=== PATIENT | female | born 1990 | race African-American/Black ===

== ENCOUNTER 2018-08-05 10:57 | Inpatient (IN) | payer OTHER ==
--- NOTE | 2018-08-05 12:26 | P.HPOB ---
History of Present Illness H&P Date: 08/05/18 This is a 27-year-old black female 2 para 1001 EDC 08/17/2018 at 38-3/7 weeks' gestation. Patient presents today to labor and delivery with uterine contractions every 5-6 minutes apart. She rates them 7 out of 10. Fetus is been active throughout the . She denies fluid leakage or vaginal bleeding. Past medical history is significant for asthma of childhood. Current medications vitamins daily. ALLERGIES none known. Past surgical history is negative. Family history significant for diabetes and hypertension. Reproductive history significant for vaginal delivery in 2014 at 39 weeks gestation. 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 history is significant for blood type O+, rubella status immune. Pap smear negative. Group B strep cultures positive. Gonorrhea and chlamydia cultures, HIV testing, urine culture, hepatitis B surface antigen all negative. One-hour Glucola 90. On exam this is a pleasant female, 5 foot 2-1/2 inches, 225 pounds, vital signs are stable and patient is afebrile. The general exam is within normal limits. Chest is clear in all trinh. Extremities reveal +1 edema. Cervix is 5-6 cm dilated, 70% effaced, -2 station, vertex presentation, slightly posterior. Artificial amniorrhexis reveals clear fluid. heart rate is consistent with reactive NST. Impression: 38-3/7 weeks intrauterine , early spontaneous labor. Positive group B strep cultures. No ALLERGIES. Plan: Penicillin G per hospital protocol. Epidural may be placed at patient's request. Consider oxytocin pending clinical progress. Anticipate normal spontaneous vaginal delivery. Review of Systems As per HPI. Constitutional: Reports as per HPI Past Medical History Past Medical History: No Reported History, Asthma History of Any Multi-Drug Resistant Organisms: None Reported Past Surgical History: No Surgical Hx Reported Smoking Status: Never smoker Medications and Allergies Home Medications Medication Instructions Recorded Confirmed Type Cephalexin [Keflex] 500 mg PO Q8HR #21 cap 12/23/17 Rx Nmm-Niun-Agtdu Acid 1 cap PO HS 12/23/17 12/23/17 History [-U Capsule (formulary)] Allergies Allergy/AdvReac Type Severity Reaction Status Date / Time No Known Allergies Allergy Verified 12/23/17 10:39 Exam Intake and Output 08/04/18 08/05/18 08/05/18 22:59 06:59 14:59 Other: Weight 99.337 kg See dictation under HPI please Assessment and Plan Assessment: 38-3/7 weeks intrauterine , active spontaneous labor. Positive group B strep status. Plan: Admit. Penicillin G prophylaxis per protocol. Analgesia options discussed, patient is requesting epidural. Consider oxytocin augmentation pending clinical progress. Close maternal and surveillance. Anticipate normal spontaneous vaginal delivery. Time with Patient: Less than 30
[2018-08-05] MEDS ORDERED: TERBUTALINE 1 MG/ML VIAL SQ PRN (12:36)
[2018-08-05] MEDS ORDERED: PENICILLIN G POTASSIUM 5,000,000 UNIT in DEXTROSE 5% IN WATER 100 ML IVPB STA ×2 (12:36)
[2018-08-05] MEDS ORDERED: METHYLERGONOVINE 0.2 MG/ML 1 ML AMP IM PRN (12:36)
[2018-08-05] MEDS ORDERED: OXYTOCIN 10 UNIT/ML 1 ML VIAL IM PRN (12:36)
[2018-08-05] MEDS ORDERED: LIDOCAINE 0.5% (PF) 5 MG/ML (50 ML SDV) SQ PRN (12:36)
[2018-08-05] MEDS ORDERED: CARBOPROST TROMETHAMINE 250 MCG/ML 1 ML AMP IM PRN (12:36)
[2018-08-05] MEDS ORDERED: OXYTOCIN 30 UNITS/500 ML NS 30 UNIT in SALINE 1 500ML.BAG IV SCH (12:45)
[2018-08-05] MEDS ORDERED: LACTATED RINGERS 1,000 ML IV SCH (12:45)
[2018-08-05 13:01] LABS: Anisocytosis Slight; Basophils % (A) 0 %; Eosinophils # (A) 0.1 k/uL (0-0.7); Eosinophils % (A) 1 %; HCT 35.8 % (34.0-46.0); HGB 11.5 gm/dL (11.4-16.0); Hypochromasia Slight; Lymphocytes % (A) 12 %; MCH 28.3 pg (25.0-35.0); MCHC 32.2 g/dL (31.0-37.0); MCV 87.6 fL (80.0-100.0); Mean Platelet Volume 7.6; Monocytes # (A) 0.3 k/uL (0-1.0); Monocytes % (A) 4 %; Neutrophils # (A) 6.6 k/uL (1.3-7.7); Neutrophils % (A) 82 %; Platelet Count 299 k/uL (150-450); RBC 4.08 m/uL (3.80-5.40); WBC 8.1 k/uL (3.8-10.6)
[2018-08-05] MEDS ORDERED: ROPIVACAINE 5MG/ML 20ML VIAL ONE (13:13)
[2018-08-05] MEDS ORDERED: fentaNYL (PF) 50 MCG/ML 5 ML AMP ONE (13:13)
[2018-08-05] MEDS ORDERED: SODIUM CHLORIDE 0.9% 100 ML BAG ONE (13:13)
[2018-08-05 14:41] VITALS: BMI 41.3
[2018-08-05] MEDS ORDERED: PENICILLIN G POTASSIUM 2,500,000 UNIT in DEXTROSE 5% IN WATER 100 ML IVPB SCH ×2 (17:00)
[2018-08-05] MEDS ORDERED: BENZOCAINE/MENTHOL SPRAY 1 GM/SPRAY AEROSOL TOPICAL PRN (17:41)
[2018-08-05] MEDS ORDERED: LANOLIN CREAM 5 GM TUBE TOPICAL PRN (17:41)
[2018-08-05] MEDS ORDERED: HYDROCORTISONE 2.5% RECTAL CREAM 30 GM TUBE RECTAL PRN (17:41)
[2018-08-05] MEDS ORDERED: diphenhydrAMINE 50 MG CAP PO PRN (17:41)
[2018-08-05] MEDS ORDERED: ZOLPIDEM 5 MG TAB PO PRN (17:41)
[2018-08-05] MEDS ORDERED: SIMETHICONE 80 MG CHEWABLE PO PRN (17:41)
[2018-08-05] MEDS ORDERED: diphenhydrAMINE 50 MG/ML 1 ML VIAL IVP PRN ×2 (17:41)
[2018-08-05] MEDS ORDERED: diphenhydrAMINE 25 MG CAP PO PRN (17:41)
[2018-08-05] MEDS ORDERED: WITCH HAZEL 1 EACH MED..PAD TOPICAL PRN (17:41)
--- NOTE | 2018-08-05 17:41 | P.PROBDLV ---
Vaginal Delivery Note - . Vaginal Delivery Note: This is a 27-year-old black female 2 para 1001 EDC 08/17/2018 at 38-3/7 weeks' gestation. Patient presented with strong regular uterine contractions and was judged to be in early active labor. is remarkable for positive group B strep status, blood type O+, rubella status immune. Please see my dictated history and physical for details. Antibiotics were started. First dose was in for more than 4 hours prior to delivery. Oxytocin was started and titrated per hospital protocol. Epidural was placed per her request. She progressed well through the first stage of labor and was judged be completely dilated at 1720 hrs. Perineal body was prepped and draped in usual sterile fashion. With excellent maternal expulsive efforts the infant's head delivered occiput anterior. She restituted accordingly. There was no nuchal cord noted. The right or anterior shoulder was gently and quickly delivered from underneath the pubic symphysis at which time the oropharynx, nasopharynx, and external nares were bulb suctioned. Patient was officially delivered of a liveborn female infant at 1726 hrs. Umbilical cord was doubly clamped and ligated, she was handed to waiting nurses for evaluation where scores were 9 and 9 at one and 5 minutes respectively were given. Infant weighed 6 lbs. 11 oz. or 3025 g. Placenta delivered spontaneously, it was inspected and noted to be intact with trivascular cord at 1730 hrs. Perineal body is then redraped. Inspection of the cervix, vagina, perineum, periurethral, and perirectal areas revealed no lacerations and no defects. Total estimated blood loss 250 mL's. All sponge needle and instrument counts are correct at the end of the procedure. Patient and her are allowed to begin the bonding experience in the LDR.
[2018-08-05] MEDS ORDERED: OXYTOCIN 20 UNITS/1000 ML NS 1,000 ML IV SCH (17:45)
[2018-08-05] MEDS: SENNOSIDES-DOCUSATE SODIUM 1 EACH TAB PO SCH (19:55)
[2018-08-05] MEDS: IBUPROFEN 600 MG TAB PO PRN (19:56)
[2018-08-05] MEDS: ACETAMINOPHEN TAB 325 MG TAB PO PRN (21:31)
[2018-08-06] MEDS: IBUPROFEN 600 MG TAB PO PRN ×3 (02:04→20:06)
[2018-08-06 07:06] LABS: Basophils % (A) 0 %; Eosinophils # (A) 0.1 k/uL (0-0.7); Eosinophils % (A) 1 %; HCT 33.4 % (34.0-46.0); HGB 10.4 gm/dL (11.4-16.0); Lymphocytes # (A) 1.7 k/uL (1.0-4.8); Lymphocytes % (A) 17 %; MCHC 31.1 g/dL (31.0-37.0); MCV 90.1 fL (80.0-100.0); Mean Platelet Volume 7.3; Monocytes # (A) 0.5 k/uL (0-1.0); Monocytes % (A) 5 %; Neutrophils # (A) 7.7 k/uL (1.3-7.7); Neutrophils % (A) 76 %; Platelet Count 273 k/uL (150-450); RBC 3.71 m/uL (3.80-5.40); RDW 15.6 % (11.5-15.5); WBC 10.2 k/uL (3.8-10.6)
[2018-08-06] MEDS: SENNOSIDES-DOCUSATE SODIUM 1 EACH TAB PO SCH ×2 (10:19→20:06)
--- NOTE | 2018-08-06 12:53 | P.DS ---
Providers Date of admission: 08/05/18 12:15 Expected date of discharge: 08/06/18 Attending physician: Joycelyn Zavala Primary care physician: Stated None - Discharge Diagnosis(es) (1) Term Current Visit: Yes Status: Acute (2) Positive GBS test Current Visit: Yes Status: Acute (3) Status post vaginal delivery Current Visit: Yes Status: Acute Hospital Course: This is a 27-year-old 2 para 1001 with an estimated due date of 08/17/18 at 38-3/7 weeks that presented to labor and delivery with HEENT: Contractions every 5-6 minutes. Patient was noted to be 4 cm and admitted to labor and delivery. Patient was also noted to be group beta strep positive and antibiotics were begun. Patient had unremarkable care Patient requested epidural placement which was placed by anesthesia without difficulty. She progressed through labor, was complete and began pushing and had a normal spontaneous vaginal delivery of a viable female infant at 1726, weight of 6 lbs. 11 oz. with Apgars of 9 and 9 at one and 5 minutes respectively. No lacerations were noted. Patient's course has been uneventful. On this day #1 she is ambulating and voiding without difficulty. She is tolerating a regular diet without nausea or vomiting. She is breast and bottle feeding. Lochia is noted to be moderate. She does wish discharge home as long as the infant is discharged with her. Patient Condition at Discharge: Good Plan - Discharge Summary New Discharge Prescriptions: No Action Mpl-Hidh-Azqud Acid [-U Capsule (formulary)] 1 cap PO HS Cephalexin [Keflex] 500 mg PO Q8HR #21 cap Discharge Medication List Cephalexin [Keflex] 500 mg PO Q8HR #21 cap 12/23/17 [Rx] Ixw-Kxae-Oyrlm Acid [-U Capsule (formulary)] 1 cap PO HS 12/23/17 [History] Follow up Appointment(s)/Referral(s): Joycelyn Zavala MD [STAFF PHYSICIAN] - 6 Weeks Patient Instructions/Handouts: Vaginal Delivery (DC), Vaginal Delivery (GEN) Discharge Disposition: HOME SELF-CARE
[2018-08-06] MEDS: ACETAMINOPHEN TAB 325 MG TAB PO PRN (13:42)
[2018-08-06 15:35] VITALS: RESP 16
[2018-08-06 21:44] VITALS: PULSE 66; TEMP 98.3
[2018-08-07] MEDS: IBUPROFEN 600 MG TAB PO PRN (08:29)
[2018-08-07] MEDS: SENNOSIDES-DOCUSATE SODIUM 1 EACH TAB PO SCH (08:29)
[2018-08-07 09:11] VITALS: BP 142/85
--- NOTE | 2018-08-07 10:43 | P.PNOBGVD ---
Subjective - Subjective Principal diagnosis: PPD 2 Interval history: Winsome has done well. She opted to stay one additional evening for continued care. On this day #2 she is ambulating and voiding without difficulty. She is tolerating a regular diet without nausea or vomiting. Her lochia is minimal. She is breast-feeding without difficulty. She states she is ready for discharge home today. Patient reports: Reports appetite normal, Reports voiding normally, Reports pain well controlled, Reports ambulating normally [place]: doing well, nursing well Objective - Latest Vital Signs Latest vital signs: Vital Signs Temp Pulse Resp BP 08/07/18 09:00 98.3 F 66 16 142/85 08/06/18 20:00 98.3 F 66 16 140/90 08/06/18 15:31 98.2 F 70 16 115/62 08/06/18 14:00 98.3 F 63 20 130/78 Intake and Output 08/06/18 08/07/18 08/07/18 22:59 06:59 14:59 Other: # Voids 1 2 1 - Exam Extremities: Present: normal, edema Abdomen: Present: normal appearance, soft Uterus: Present: normal, firm Assessment and Plan (1) Term Current Visit: Yes Status: Acute Code(s): Z34.90 - ENCNTR FOR SUPRVSN OF NORMAL , UNSP, UNSP TRIMESTER SNOMED Code(s): 71751011 (2) Positive GBS test Current Visit: Yes Status: Acute Code(s): B95.1 - STREPTOCOCCUS, GROUP B, CAUSING DISEASES CLASSD ELSR SNOMED Code(s): 781469113 (3) Status post vaginal delivery Current Visit: Yes Status: Acute Code(s): DYG2372 - SNOMED Code(s): 226035860 Plan: Plan discharge home with follow-up with Dr. jackson in 6 weeks. Should she have any concerns prior to this 6 weeks appointment she is urged to call and follow up sooner.
== END 2018-08-07 12:30 | disposition home or self-care (01) | DRG 807 ==
LOC: FBPOP 10:57 → 4FBP 12:15
PROVIDERS: ADMIT Obstetrics & Gynecology; ATTEND Obstetrics & Gynecology
PROC: 10E0XZZ Delivery of Products of Conception, External Approach (ICD-10-PCS; principal; 2018-08-05)
PROC: 00HU33Z Insertion of Infusion Device into Spinal Canal, Percutaneous Approach (ICD-10-PCS; 2018-08-05)
PROC: 3E0R3BZ Introduction of Anesthetic Agent into Spinal Canal, Percutaneous Approach (ICD-10-PCS; 2018-08-05)
DX: O99.824 Streptococcus B carrier state complicating childbirth (principal); Z37.0 Single live birth; Z3A.38 38 weeks gestation of pregnancy; Z79.899 Other long term (current) drug therapy; Z87.09 Personal history of other diseases of the respiratory system; Z83.3 Family history of diabetes mellitus; Z82.49 Family history of ischemic heart disease and other diseases of the circulatory system
CPT/HCPCS: 59025; 85025; 86850; 86900; 86901; 99213

== ENCOUNTER 2019-10-06 17:07 | Emergency (ER) | payer OTHER ==
[2019-10-06] MEDS ORDERED: MECLIZINE 12.5 MG TAB PO STA ×2 (18:09→20:15)
[2019-10-06 18:37] LABS: Appearance,Urine Clear (Clear); Bilirubin,Urine Negative (Negative); Blood,Urine Negative (Negative); Color,Urine Colorless; Glucose,Urine (UA) Negative (Negative); Ketones,Urine Negative (Negative); Leukocyte Esterase,Urine Negative (Negative); Nitrite,Urine Negative (Negative); PH, Urine 5.5 (5.0-8.0); Protein,Urine Negative (Negative); Specific Gravity,Urine 1.005 (1.001-1.035); Urobilinogen,Urine <2.0 mg/dL (<2.0)
--- NOTE | 2019-10-06 18:49 | ED ---
Dizziness [facility] - General Chief Complaint: Dizziness Stated Complaint: Dizziness/anxiety Time Seen by Provider: 10/06/19 17:30 Source: patient Mode of arrival: ambulatory Limitations: no limitations - History of Present Illness Initial Comments: Patient is a 29-year-old previously healthy female who presents emergency room with reported dizziness. She reports to vertiginous symptoms as well as presyncope which has been occurring for the past month. Denies headaches or visual changes. No neck pain or stiffness. No fevers or chills. Denies any recent head trauma. No chiropractic medications the neck. Denies that her symptoms are worse with position changes. Denies syncope. No chest pain or shortness of breath. No concern for . Denies changes in her bowel or bladder habits. No other alleviating, precipitating or vomiting factors - Related Data Previous Rx's Medication Instructions Recorded Meclizine [Antivert] 25 mg PO TID PRN #15 tab 10/06/19 Allergies Allergy/AdvReac Type Severity Reaction Status Date / Time No Known Allergies Allergy Verified 10/06/19 18:38 Review of Systems ROS Statement: Those systems with pertinent positive or pertinent negative responses have been documented in the HPI. ROS Other: All systems not noted in ROS Statement are negative. Past Medical History Past Medical History: Asthma History of Any Multi-Drug Resistant Organisms: None Reported Past Surgical History: No Surgical Hx Reported Past Anesthesia/Blood Transfusion Reactions: No Reported Reaction Past Psychological History: Anxiety Smoking Status: Never smoker Past Alcohol Use History: None Reported Past Drug Use History: None Reported - Past Family History Father Family Medical History: No Reported History General Exam Limitations: no limitations General appearance: alert, in no apparent distress Head exam: Present: atraumatic, normocephalic, normal inspection Eye exam: Present: normal appearance, PERRL, EOMI. Absent: scleral icterus, conjunctival injection, periorbital swelling ENT exam: Present: normal exam, mucous membranes moist Neck exam: Present: normal inspection. Absent: tenderness, meningismus, lymphadenopathy Respiratory exam: Present: normal lung sounds bilaterally. Absent: respiratory distress, wheezes, rales, rhonchi, stridor Cardiovascular Exam: Present: regular rate, normal rhythm, normal heart sounds. Absent: systolic murmur, diastolic murmur, rubs, gallop, clicks GI/Abdominal exam: Present: soft, normal bowel sounds. Absent: distended, tenderness, guarding, rebound, rigid Extremities exam: Present: normal inspection, full ROM, normal capillary refill. Absent: tenderness, pedal edema, joint swelling, calf tenderness Back exam: Present: normal inspection Neurological exam: Present: alert, oriented X3, CN II-XII intact Psychiatric exam: Present: normal affect, normal mood Skin exam: Present: warm, dry, intact, normal color. Absent: rash Course Vital Signs 10/06/19 10/06/19 10/06/19 17:30 18:45 18:46 Temperature 98.7 F Pulse Rate 87 Respiratory 18 Rate Blood Pressure 122/86 119/82 121/85 O2 Sat by Pulse 99 Oximetry 10/06/19 10/06/19 19:15 20:33 Temperature 97.8 F Pulse Rate 62 65 Respiratory 17 18 Rate Blood Pressure 128/88 126/84 O2 Sat by Pulse 100 100 Oximetry EKG Findings - EKG Comments: EKG Findings:: EKG demonstrates a sinus rhythm with a ventricular rate of 96. IL interval 160. QRS 110. QTC 449. Incomplete right bundle branch block. Inverted T waves with ST depression in V2 through the 5 Medical Decision Making - Medical Decision Making Upon arrival the patient is placed into room 21. A thorough history and physical exam was performed. Laboratory studies were conducted. The patient did have an EKG performed. CT of the brain as well as a chest x-ray are performed. CT of the brain demonstrates no acute intracranial process. Chest x-ray demonstrates no acute pulmonary process. Laboratory studies are unremarkable. Patient does have a abnormal EKG. I called and discussed the results with Dr. Quinones. He states that the patient is okay to follow up outpatient for an echo. This information was passed on the patient. I did provide her with the [facility]. She she is given a dose of meclizine in the emergency department to take home to take when her symptoms occur. If she has any new or worsening symptoms return to the emergency room. The patient was in agreement with the plan to discharge home in stable condition - Lab Data Result diagrams: 10/06/19 18:55 10/06/19 18:55 Lab Results 10/06/19 10/06/19 10/06/19 Range/Units 18:28 18:28 18:55 WBC 9.6 (3.8-10.6) k/uL RBC 4.28 (3.80-5.40) m/uL Hgb 13.0 (11.4-16.0) gm/dL Hct 40.3 (34.0-46.0) % MCV 94.1 (80.0-100.0) fL MCH 30.3 (25.0-35.0) pg MCHC 32.1 (31.0-37.0) g/dL RDW 12.6 (11.5-15.5) % Plt Count 345 (150-450) k/uL Neutrophils % 69 % Lymphocytes % 22 % Monocytes % 3 % Eosinophils % 4 % Basophils % 0 % Neutrophils # 6.6 (1.3-7.7) k/uL Lymphocytes # 2.1 (1.0-4.8) k/uL Monocytes # 0.3 (0-1.0) k/uL Eosinophils # 0.4 (0-0.7) k/uL Basophils # 0.0 (0-0.2) k/uL Sodium (137-145) mmol/L Potassium (3.5-5.1) mmol/L Chloride (98-107) mmol/L Carbon Dioxide (22-30) mmol/L Anion Gap mmol/L BUN (7-17) mg/dL Creatinine (0.52-1.04) mg/dL Est GFR (CKD-EPI)AfAm (>60 ml/min/1.73 sqM) Est GFR (CKD-EPI)NonAf (>60 ml/min/1.73 sqM) Glucose (74-99) mg/dL Calcium (8.4-10.2) mg/dL Total Bilirubin (0.2-1.3) mg/dL AST (14-36) U/L ALT (4-34) U/L Alkaline Phosphatase (38-126) U/L Troponin I (0.000-0.034) ng/mL Total Protein (6.3-8.2) g/dL Albumin (3.5-5.0) g/dL Urine Color Colorless Urine Appearance Clear (Clear) Urine pH 5.5 (5.0-8.0) Ur Specific [place] 1.005 (1.001-1.035) Urine Protein Negative (Negative) Urine Glucose (UA) Negative (Negative) Urine Ketones Negative (Negative) Urine Blood Negative (Negative) Urine Nitrite Negative (Negative) Urine Bilirubin Negative (Negative) Urine Urobilinogen <2.0 (<2.0) mg/dL Ur Leukocyte Esterase Negative (Negative) Urine HCG, Qual Not Detected (Not Detectd) 10/06/19 10/06/19 Range/Units 18:55 18:55 WBC (3.8-10.6) k/uL RBC (3.80-5.40) m/uL Hgb (11.4-16.0) gm/dL Hct (34.0-46.0) % MCV (80.0-100.0) fL MCH (25.0-35.0) pg MCHC (31.0-37.0) g/dL RDW (11.5-15.5) % Plt Count (150-450) k/uL Neutrophils % % Lymphocytes % % Monocytes % % Eosinophils % % Basophils % % Neutrophils # (1.3-7.7) k/uL Lymphocytes # (1.0-4.8) k/uL Monocytes # (0-1.0) k/uL Eosinophils # (0-0.7) k/uL Basophils # (0-0.2) k/uL Sodium 137 (137-145) mmol/L Potassium 4.2 (3.5-5.1) mmol/L Chloride 104 (98-107) mmol/L Carbon Dioxide 26 (22-30) mmol/L Anion Gap 7 mmol/L BUN 7 (7-17) mg/dL Creatinine 0.53 (0.52-1.04) mg/dL Est GFR (CKD-EPI)AfAm >90 (>60 ml/min/1.73 sqM) Est GFR (CKD-EPI)NonAf >90 (>60 ml/min/1.73 sqM) Glucose 83 (74-99) mg/dL Calcium 10.0 (8.4-10.2) mg/dL Total Bilirubin 0.3 (0.2-1.3) mg/dL AST 19 (14-36) U/L ALT 8 (4-34) U/L Alkaline Phosphatase 66 (38-126) U/L Troponin I <0.012 (0.000-0.034) ng/mL Total Protein 6.9 (6.3-8.2) g/dL Albumin 4.3 (3.5-5.0) g/dL Urine Color Urine Appearance (Clear) Urine pH (5.0-8.0) Ur Specific [place] (1.001-1.035) Urine Protein (Negative) Urine Glucose (UA) (Negative) Urine Ketones (Negative) Urine Blood (Negative) Urine Nitrite (Negative) Urine Bilirubin (Negative) Urine Urobilinogen (<2.0) mg/dL Ur Leukocyte Esterase (Negative) Urine HCG, Qual (Not Detectd) Disposition Clinical Impression: Dizziness, Pre-syncope Disposition: HOME SELF-CARE Condition: Stable Instructions (If sedation given, give patient instructions): Dizziness (ED) Additional Instructions: Please follow-up with the [facility] and have an echo done of your heart. I also recommended Holter monitoring. Return to the emergency room for new or worsening symptoms Prescriptions: Meclizine [Antivert] 25 mg PO TID PRN #15 tab PRN Reason: Vertigo Is patient prescribed a controlled substance at d/c from ED?: No Referrals: None,Stated [Primary Care Provider] - 1-2 days [facility] [Provider Group] - 1-2 days Time of Disposition: 20:17
[2019-10-06 19:09] LABS: Basophils % (A) 0 %; Eosinophils # (A) 0.4 k/uL (0-0.7); Eosinophils % (A) 4 %; HCT 40.3 % (34.0-46.0); Lymphocytes # (A) 2.1 k/uL (1.0-4.8); Lymphocytes % (A) 22 %; MCH 30.3 pg (25.0-35.0); MCHC 32.1 g/dL (31.0-37.0); MCV 94.1 fL (80.0-100.0); Mean Platelet Volume 7.1; Monocytes # (A) 0.3 k/uL (0-1.0); Monocytes % (A) 3 %; Neutrophils # (A) 6.6 k/uL (1.3-7.7); Neutrophils % (A) 69 %; Platelet Count 345 k/uL (150-450); RBC 4.28 m/uL (3.80-5.40); RDW 12.6 % (11.5-15.5); WBC 9.6 k/uL (3.8-10.6)
--- NOTE | 2019-10-06 19:20 | XR ---
EXAMINATION TYPE: XR chest 2V DATE OF EXAM: 10/06/2019 COMPARISON: None INDICATION: Dizzy TECHNIQUE: Frontal and lateral views of the chest are obtained. FINDINGS: The heart size is normal. The pulmonary vasculature is normal. The lungs are clear. IMPRESSION: 1. No acute pulmonary process.
[2019-10-06 19:29] LABS: ALT 8 U/L (4-34); AST 19 U/L (14-36); African American GFR (CKD) >90 (>60 ml/min/1.73 sqM); Albumin 4.3 g/dL (3.5-5.0); Alkaline Phosphatase 66 U/L (38-126); Anion Gap 7 mmol/L; Blood Urea Nitrogen 7 mg/dL (7-17); Carbon Dioxide 26 mmol/L (22-30); Chloride 104 mmol/L (98-107); Glucose 83 mg/dL (74-99); Non-African American GFR(CKD) >90 (>60 ml/min/1.73 sqM); Potassium 4.2 mmol/L (3.5-5.1); Sodium 137 mmol/L (137-145); Total Bilirubin 0.3 mg/dL (0.2-1.3); Total Protein 6.9 g/dL (6.3-8.2)
[2019-10-06 19:46] VITALS: TEMP 97.8
--- NOTE | 2019-10-06 20:07 | CT ---
EXAMINATION TYPE: CT brain wo con DATE OF EXAM: 10/06/2019 COMPARISON: None INDICATION: Dizziness. DLP: 1141.4 mGycm, Automated exposure control for dose reduction was used. CONTRAST: None CT of the brain is performed utilizing 3 mm thick sections through the posterior fossa and 3 mm thick sections through the remaining calvarium. Study is performed within 24 hours of arrival to the hosp [facility]. No abnormal hyperdensity is present to suggest an acute intracranial hemorrhage. No mass lesion is evident. No acute infarcts are evident. Ventricles and sulci are appropriate for the patient age. Paranasal sinuses and mastoid air cells within the [id number] are clear. IMPRESSIONS: 1. Normal CT Brain
[2019-10-06 20:34] VITALS: BP 126/84; PULSE 65; RESP 18
== END 2019-10-06 20:35 | disposition home or self-care (01) ==
LOC: EC 17:07
DX: R42 Dizziness and giddiness (principal); R55 Syncope and collapse; R94.31 Abnormal electrocardiogram [ECG] [EKG]
CPT/HCPCS: 36415; 70450; 71046; 80053; 81003; 81025; 84484; 85025; 93005; 99284

== ENCOUNTER 2019-10-31 01:30 | Emergency (ER) | payer OTHER ==
[2019-10-31 01:46] VITALS: RESP 18
[2019-10-31] MEDS ORDERED: SODIUM CHLORIDE 0.9% 1,000 ML IV STA (02:04)
[2019-10-31] MEDS ORDERED: LORazepam 2 MG/ML INJ IV STA (02:04)
[2019-10-31 02:50] LABS: Basophils % (A) 1 %; Eosinophils # (A) 0.2 k/uL (0-0.7); Eosinophils % (A) 3 %; HCT 40.2 % (34.0-46.0); HGB 12.9 gm/dL (11.4-16.0); Lymphocytes # (A) 1.8 k/uL (1.0-4.8); Lymphocytes % (A) 24 %; MCH 29.7 pg (25.0-35.0); MCV 92.6 fL (80.0-100.0); Mean Platelet Volume 6.7; Monocytes # (A) 0.3 k/uL (0-1.0); Monocytes % (A) 4 %; Neutrophils # (A) 5.1 k/uL (1.3-7.7); Neutrophils % (A) 68 %; Platelet Count 335 k/uL (150-450); RBC 4.34 m/uL (3.80-5.40); RDW 12.3 % (11.5-15.5); WBC 7.6 k/uL (3.8-10.6)
[2019-10-31 02:55] LABS: Appearance,Urine Clear (Clear); Bilirubin,Urine Negative (Negative); Blood,Urine Trace (Negative); Color,Urine Colorless; Glucose,Urine (UA) Negative (Negative); Ketones,Urine Negative (Negative); Leukocyte Esterase,Urine Trace (Negative); Mucus,Urine Rare /hpf; Nitrite,Urine Negative (Negative); PH, Urine 7.5 (5.0-8.0); Protein,Urine Negative (Negative); RBC,Urine <1 /hpf (0-5); Specific Gravity,Urine 1.002 (1.001-1.035); Squamous Epithelial Cell,Urine 1 /hpf (0-4); Urobilinogen,Urine <2.0 mg/dL (<2.0); WBC,Urine 1 /hpf (0-5)
[2019-10-31 02:59] LABS: ALT 9 U/L (4-34); AST 20 U/L (14-36); African American GFR (CKD) >90 (>60 ml/min/1.73 sqM); Albumin 4.3 g/dL (3.5-5.0); Alkaline Phosphatase 63 U/L (38-126); Anion Gap 6 mmol/L; Blood Urea Nitrogen 8 mg/dL (7-17); Calcium 9.8 mg/dL (8.4-10.2); Carbon Dioxide 27 mmol/L (22-30); Chloride 106 mmol/L (98-107); Glucose 115 mg/dL (74-99); Magnesium 2.1 mg/dL (1.6-2.3); Non-African American GFR(CKD) >90 (>60 ml/min/1.73 sqM); Potassium 3.5 mmol/L (3.5-5.1); Sodium 139 mmol/L (137-145); Total Bilirubin 0.3 mg/dL (0.2-1.3); Total Protein 7.2 g/dL (6.3-8.2)
--- NOTE | 2019-10-31 03:05 | ED ---
General Adult HPI - General Chief complaint: Dizziness Stated complaint: Shakey Time Seen by Provider: 10/31/19 01:51 Source: patient, RN notes reviewed, old records reviewed Mode of arrival: ambulatory Limitations: no limitations - History of Present Illness Initial comments: 29-year-old female patient presents to ED for evaluation. Patient were that she has been very anxious. Shaky and somewhat dizzy throughout the day today. Patient denies headache changes in vision chest pain or shortness of breath. Patient was recently evaluated in the emergency department for similar symptoms on 10/05 where she had an extensive workup including labs brain CT and chest x- ray all which were negative for acute process. Patient denies any suicidal or homicidal ideations. Denies any other acute complaints. Systemic: Pt denies fatigue, fever/chills, rash. Pt denies weakness, night sweats, weight loss. Neuro: Pt denies headache, visual disturbances, syncope or pre-syncope. HEENT: Pt denies ocular discharge or irritation, otalgia, rhinorrhea, pharyngitis or notable lymphadenopathy. Cardiopulmonary: Pt denies chest pain, SOB, heart palpitations, dyspnea on exertion. Abdominal/GI: Pt denies abdominal pain, n/v/d. : Pt denies dysuria, burning w/ urination, frequency/urgency. Denies new onset urinary or bowel incontinence. MSK: Pt denies myalgia, loss of strength or function in extremities. Neuro: Pt denies new onset weakness, paresthesias. - Related Data Previous Rx's Medication Instructions Recorded Meclizine [Antivert] 25 mg PO TID PRN #15 tab 10/06/19 LORazepam [Ativan] 0.5 mg PO BID PRN 3 Days #6 tab 10/31/19 Allergies Allergy/AdvReac Type Severity Reaction Status Date / Time No Known Allergies Allergy Verified 10/31/19 01:46 Review of Systems ROS Statement: Those systems with pertinent positive or pertinent negative responses have been documented in the HPI. ROS Other: All systems not noted in ROS Statement are negative. Past Medical History Past Medical History: Asthma History of Any Multi-Drug Resistant Organisms: None Reported Past Surgical History: No Surgical Hx Reported Past Anesthesia/Blood Transfusion Reactions: No Reported Reaction Past Psychological History: Anxiety Smoking Status: Never smoker Past Alcohol Use History: None Reported Past Drug Use History: None Reported - Past Family History Father Family Medical History: No Reported History General Exam - General Exam Comments Initial Comments: Constitutional: NAD, AOX3, Pt has pleasant affect. HEENT: NC/AT, trachea midline, neck supple, no lymphadenopathy. External ears appear normal, without discharge. Mucous membranes moist. Eyes PERRLA, EOM intact. There is no scleral icterus. No pallor noted. Cardiopulmonary: RRR, no murmurs, rubs or gallops, no JVD noted. Lungs CTAB in anterior and posterior trinh. No peripheral edema. Abdominal exam: Abdomen soft and non-distended. Abdomen non-tender to palpation in all 4 quadrants. Bowel sounds active in LLQ. No hepatosplenomegaly. Neuro: CN II-XII intact. No nuchal rigidity. MSK: No posterior calf tenderness bilaterally. Posterior tibialis and radial pulse +2 bilaterally. Sensation intact in upper and lower extremities. Full active ROM in upper and lower extremities, 5/5 stregnth. Limitations: no limitations Course Vital Signs 10/31/19 01:41 Temperature 98.7 F Pulse Rate 111 H Respiratory 18 Rate Blood Pressure 141/98 O2 Sat by Pulse 98 Oximetry Medical Decision Making - Medical Decision Making 29-year-old female patient presents to ED for evaluation feeling dizzy and shaky and anxious throughout the day. Patient vital signs displayed a little tachycardia initially. Physical exam did not display acute pathology. Patient's symptoms resolved after Ativan. Patient leaves of the symptoms are likely anxiety related. Workup here is noncompressive. EKG is unchanged from prior. Patient discharged with a short supply of anxiety medication that she'll use only as needed and will follow-up with her primary care provider and return to ER if any worsening symptoms. Case discussed with Dr. Marinelli. - Lab Data Result diagrams: 10/31/19 02:36 10/31/19 02:36 Lab Results 10/31/19 10/31/19 10/31/19 Range/Units 02:36 02:36 02:36 WBC 7.6 (3.8-10.6) k/uL RBC 4.34 (3.80-5.40) m/uL Hgb 12.9 (11.4-16.0) gm/dL Hct 40.2 (34.0-46.0) % MCV 92.6 (80.0-100.0) fL MCH 29.7 (25.0-35.0) pg MCHC 32.0 (31.0-37.0) g/dL RDW 12.3 (11.5-15.5) % Plt Count 335 (150-450) k/uL Neutrophils % 68 % Lymphocytes % 24 % Monocytes % 4 % Eosinophils % 3 % Basophils % 1 % Neutrophils # 5.1 (1.3-7.7) k/uL Lymphocytes # 1.8 (1.0-4.8) k/uL Monocytes # 0.3 (0-1.0) k/uL Eosinophils # 0.2 (0-0.7) k/uL Basophils # 0.0 (0-0.2) k/uL Sodium 139 (137-145) mmol/L Potassium 3.5 (3.5-5.1) mmol/L Chloride 106 (98-107) mmol/L Carbon Dioxide 27 (22-30) mmol/L Anion Gap 6 mmol/L BUN 8 (7-17) mg/dL Creatinine 0.61 (0.52-1.04) mg/dL Est GFR (CKD-EPI)AfAm >90 (>60 ml/min/1.73 sqM) Est GFR (CKD-EPI)NonAf >90 (>60 ml/min/1.73 sqM) Glucose 115 H (74-99) mg/dL Calcium 9.8 (8.4-10.2) mg/dL Magnesium 2.1 (1.6-2.3) mg/dL Total Bilirubin 0.3 (0.2-1.3) mg/dL AST 20 (14-36) U/L ALT 9 (4-34) U/L Alkaline Phosphatase 63 (38-126) U/L Total Protein 7.2 (6.3-8.2) g/dL Albumin 4.3 (3.5-5.0) g/dL Urine Color Colorless Urine Appearance Clear (Clear) Urine pH 7.5 (5.0-8.0) Ur Specific [place] 1.002 (1.001-1.035) Urine Protein Negative (Negative) Urine Glucose (UA) Negative (Negative) Urine Ketones Negative (Negative) Urine Blood Trace H (Negative) Urine Nitrite Negative (Negative) Urine Bilirubin Negative (Negative) Urine Urobilinogen <2.0 (<2.0) mg/dL Ur Leukocyte Esterase Trace H (Negative) Urine RBC <1 (0-5) /hpf Urine WBC 1 (0-5) /hpf Ur Squamous Epith Cells 1 (0-4) /hpf Urine Mucus Rare H (None) /hpf Urine HCG, Qual (Not Detectd) 10/31/19 Range/Units 02:36 WBC (3.8-10.6) k/uL RBC (3.80-5.40) m/uL Hgb (11.4-16.0) gm/dL Hct (34.0-46.0) % MCV (80.0-100.0) fL MCH (25.0-35.0) pg MCHC (31.0-37.0) g/dL RDW (11.5-15.5) % Plt Count (150-450) k/uL Neutrophils % % Lymphocytes % % Monocytes % % Eosinophils % % Basophils % % Neutrophils # (1.3-7.7) k/uL Lymphocytes # (1.0-4.8) k/uL Monocytes # (0-1.0) k/uL Eosinophils # (0-0.7) k/uL Basophils # (0-0.2) k/uL Sodium (137-145) mmol/L Potassium (3.5-5.1) mmol/L Chloride (98-107) mmol/L Carbon Dioxide (22-30) mmol/L Anion Gap mmol/L BUN (7-17) mg/dL Creatinine (0.52-1.04) mg/dL Est GFR (CKD-EPI)AfAm (>60 ml/min/1.73 sqM) Est GFR (CKD-EPI)NonAf (>60 ml/min/1.73 sqM) Glucose (74-99) mg/dL Calcium (8.4-10.2) mg/dL Magnesium (1.6-2.3) mg/dL Total Bilirubin (0.2-1.3) mg/dL AST (14-36) U/L ALT (4-34) U/L Alkaline Phosphatase (38-126) U/L Total Protein (6.3-8.2) g/dL Albumin (3.5-5.0) g/dL Urine Color Urine Appearance (Clear) Urine pH (5.0-8.0) Ur Specific [place] (1.001-1.035) Urine Protein (Negative) Urine Glucose (UA) (Negative) Urine Ketones (Negative) Urine Blood (Negative) Urine Nitrite (Negative) Urine Bilirubin (Negative) Urine Urobilinogen (<2.0) mg/dL Ur Leukocyte Esterase (Negative) Urine RBC (0-5) /hpf Urine WBC (0-5) /hpf Ur Squamous Epith Cells (0-4) /hpf Urine Mucus (None) /hpf Urine HCG, Qual Not Detected (Not Detectd) - EKG Data -: EKG Interpreted by Me (and Dr. Marinelli ) EKG Comments: Ventricular rate 84, when necessary for 170, QRS 114, QT/QTC 394/465. Normal sinus rhythm, left axis deviation, right bundle-branch block, nonspecific T-wave abnormality. No concern for acute ischemia this time. Disposition Clinical Impression: Anxiety, Dizziness Disposition: HOME SELF-CARE Condition: Stable Instructions (If sedation given, give patient instructions): Vertigo (ED), Anxiety (ED) Additional Instructions: Follow-up with primary care provider tomorrow. Use the anxiety medication only as needed. As discussed at your previous visit follow-up with cardiology [facility] for your abnormal EKG. Return to ED with any worsening symptoms. Prescriptions: LORazepam [Ativan] 0.5 mg PO BID PRN 3 Days #6 tab PRN Reason: anxiety Is patient prescribed a controlled substance at d/c from ED?: No Referrals: None,Stated [Primary Care Provider] - 1-2 days Lavon Chatterjee [STAFF PHYSICIAN] - 1-2 days Daren Quinones DO [STAFF PHYSICIAN] - 1-2 days Sanjeev Vinson MD [REFERRING] - 1-2 days
[2019-10-31 03:44] VITALS: BP 125/81; PULSE 71; TEMP 98.1
== END 2019-10-31 03:44 | disposition home or self-care (01) ==
LOC: EC 01:30
DX: R42 Dizziness and giddiness (principal); F41.9 Anxiety disorder, unspecified
CPT/HCPCS: 36415; 93005; 80053; 83735; 85025; 81001; 81025; 99284; 96374; 96361; J2060

== ENCOUNTER → 2020-02-21 | Outpatient (CLI) | payer BC ==
--- NOTE | 2020-02-21 11:28 | US ---
EXAMINATION TYPE: US abdomen complete DATE OF EXAM: 02/21/2020 COMPARISON: NONE CLINICAL HISTORY: 29-year-old female R01.9 Abdominal Pain. Abdomen pain x couple weeks, nausea TECHNIQUE: Multiple sonographic images of the abdomen are obtained. FINDINGS: EXAM MEASUREMENTS: Liver Length: 13.4 cm Gallbladder Wall: 0.2 cm CBD: 0.3 cm Spleen: 8.2 cm Right Kidney: 9.5 x 5.1 x 5.4 cm Left Kidney: 10.3 x 5.8 x 5.8 cm Pancreas: Most of the pancreas is visualized and shows no gross abnormality. Liver: wnl Gallbladder: wnl Evidence for sonographic Beyer's sign: no CBD: wnl Spleen: wnl Right Kidney: wnl Left Kidney: wnl Upper IVC: wnl Abd Aorta: wnl IMPRESSION: No specific sonographic abnormality identified of the abdomen.
== END | disposition home or self-care (01) ==
LOC: RADUSWWP 10:43
PROVIDERS: ATTEND Nurse Practitioner Adult Health
DX: R10.9 Unspecified abdominal pain (principal)
CPT/HCPCS: 76700

== ENCOUNTER 2020-03-27 18:45 | Emergency (ER) | payer OTHER, BC ==
[2020-03-27 19:04] VITALS: BP 137/89; PULSE 74; RESP 18; TEMP 98.7
[2020-03-27] MEDS ORDERED: DIPH,PERTUS(ACELL)TETVAC-LF 0.5 ML VIAL IM ONE (19:12)
--- NOTE | 2020-03-27 19:14 | ED ---
General Adult HPI - General Chief complaint: Needlestick/Exposure Stated complaint: needle stuck [facility] Time Seen by Provider: 03/27/20 19:08 Source: patient Mode of arrival: ambulatory Limitations: no limitations - History of Present Illness Initial comments: 29 year-old female patient presents to the emergency department for evaluation after having a needlestick injury at work. 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 Patient states she did clean the wound. She is unsure if she has been vaccinated for hepatitis B. She is unsure when her last tetanus vaccine was given. She states they did draw the patient for communicable bloodborne diseases and the patient will be tested through her employer. They did send a rapid HIV. Patient denies any other concerns or symptoms. - Related Data Previous Rx's Medication Instructions Recorded Meclizine [Antivert] 25 mg PO TID PRN #15 tab 10/06/19 LORazepam [Ativan] 0.5 mg PO BID PRN 3 Days #6 tab 10/31/19 Allergies Allergy/AdvReac Type Severity Reaction Status Date / Time No Known Allergies Allergy Verified 10/31/19 01:46 Review of Systems ROS Statement: Those systems with pertinent positive or pertinent negative responses have been documented in the HPI. ROS Other: All systems not noted in ROS Statement are negative. Past Medical History Past Medical History: Asthma History of Any Multi-Drug Resistant Organisms: None Reported Past Surgical History: No Surgical Hx Reported Past Anesthesia/Blood Transfusion Reactions: No Reported Reaction Past Psychological History: Anxiety Smoking Status: Never smoker Past Alcohol Use History: None Reported Past Drug Use History: None Reported - Past Family History Father Family Medical History: No Reported History General Exam Limitations: no limitations General appearance: alert, in no apparent distress, other (This is a well developed, well nourished adult female patient in no acute distress. ) Respiratory exam: Present: normal lung sounds bilaterally. Absent: respiratory distress, wheezes, rales, rhonchi, stridor Cardiovascular Exam: Present: regular rate, normal rhythm, normal heart sounds. Absent: systolic murmur, diastolic murmur, rubs, gallop, clicks Extremities exam: Present: full ROM, normal capillary refill, other (puncture to the pad of the right middle finger. No active bleeding. Skin is otherwise warm and dry. Full ROM intact. Radial pulse 2+. ). Absent: tenderness, pedal edema, joint swelling, calf tenderness Neurological exam: Present: alert, oriented X3, CN II-XII intact Psychiatric exam: Present: normal affect, normal mood Skin exam: Present: warm, dry, intact, normal color. Absent: rash Course Vital Signs 03/27/20 19:03 Temperature 98.7 F Pulse Rate 74 Respiratory 18 Rate Blood Pressure 137/89 O2 Sat by Pulse 100 Oximetry Medical Decision Making - Medical Decision Making 29-year-old female patient presents to the emergency department today for evaluation after sustaining a needlestick injury to the right middle finger. 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 She is awaiting results. We did update her tetanus today. She is going to look into whether or not her hepatitis B series is up-to-date and follow up regarding this as well. She was given counseling regarding blood- borne pathogens. We discharged follow-up with her primary care physician and employee health services for further evaluation as soon as possible. Return parameters were discussed in detail. She verbalizes understanding and agrees with this plan. Case discussed with my attending Dr. Marinelli. Disposition Clinical Impression: Needlestick injury accident with exposure to body fluid Disposition: HOME SELF-CARE Condition: Good Instructions (If sedation given, give patient instructions): Body Substance Exposure (ED) Additional Instructions: Await results of patient's testing to determine need for postexposure prophylaxis for HIV. Follow-up with your primary doctor and previous records to determine if you had hepatitis B vaccination. Return to the emergency department for any new, worsening, or concerning symptoms. Is patient prescribed a controlled substance at d/c from ED?: No Referrals: Jemal Olivares MD [Primary Care Provider] - 1-2 days Time of Disposition: 19:14
[2020-03-28 03:16] LABS: Hepatitis B Surface AB- Quant 18.9 mIU/mL; Hepatitis B Surface Antibody Reactive (Non-Reactive); Hepatitis C IgG Antibody Non-Reactive (Non-Reactive)
[2020-03-28 04:18] LABS: HIV 2 AB Non-Reactive (Non-Reactive); HIV AB P24 Non-Reactive (Non-Reactive); HIV P24 AG Non-Reactive (Non-Reactive)
== END 2020-03-27 20:00 | disposition home or self-care (01) ==
LOC: EC 18:45
DX: S61.232A Puncture wound without foreign body of right middle finger without damage to nail, initial encounter (principal); Z23 Encounter for immunization; Z77.21 Contact with and (suspected) exposure to potentially hazardous body fluids; W46.0XXA Contact with hypodermic needle, initial encounter; Y92.69 Other specified industrial and construction area as the place of occurrence of the external cause; Y99.0 Civilian activity done for income or pay
CPT/HCPCS: 36415; 86706; 86803; 87390; 90471; 90715; 99282

== ENCOUNTER 2020-04-11 18:19 | Emergency (ER) | payer BC ==
[2020-04-11 18:32] VITALS: PULSE 95; RESP 18; TEMP 97.8
[2020-04-11 19:24] LABS: Appearance,Urine Clear (Clear); Bacteria,Urine Rare /hpf; Bilirubin,Urine Negative (Negative); Blood,Urine Large (Negative); Color,Urine Light Yellow; Glucose,Urine (UA) Negative (Negative); Ketones,Urine Negative (Negative); Leukocyte Esterase,Urine Small (Negative); Nitrite,Urine Negative (Negative); Protein,Urine Negative (Negative); RBC,Urine 60 /hpf (0-5); Specific Gravity,Urine 1.005 (1.001-1.035); Squamous Epithelial Cell,Urine 1 /hpf (0-4); Urobilinogen,Urine <2.0 mg/dL (<2.0); WBC,Urine 21 /hpf (0-5)
[2020-04-11 19:24] LABS: Basophils # (A) 0.1 k/uL (0-0.2); Basophils % (A) 1 %; Eosinophils # (A) 0.5 k/uL (0-0.7); Eosinophils % (A) 5 %; HCT 45.1 % (34.0-46.0); Lymphocytes # (A) 2.5 k/uL (1.0-4.8); Lymphocytes % (A) 26 %; MCH 31.8 pg (25.0-35.0); MCHC 33.3 g/dL (31.0-37.0); MCV 95.4 fL (80.0-100.0); Mean Platelet Volume 7.2; Monocytes # (A) 0.3 k/uL (0-1.0); Monocytes % (A) 3 %; Neutrophils # (A) 6.1 k/uL (1.3-7.7); Neutrophils % (A) 63 %; Platelet Count 367 k/uL (150-450); RBC 4.72 m/uL (3.80-5.40); RDW 12.6 % (11.5-15.5); WBC 9.7 k/uL (3.8-10.6)
[2020-04-11 19:36] LABS: ALT 11 U/L (4-34); AST 25 U/L (14-36); African American GFR (CKD) >90 (>60 ml/min/1.73 sqM); Albumin 5.2 g/dL (3.5-5.0); Alkaline Phosphatase 56 U/L (38-126); Amylase 85 U/L (30-110); Anion Gap 14 mmol/L; Blood Urea Nitrogen 7 mg/dL (7-17); Calcium 10.7 mg/dL (8.4-10.2); Carbon Dioxide 24 mmol/L (22-30); Chloride 107 mmol/L (98-107); Glucose 83 mg/dL (74-99); Lipase 80 U/L (23-300); Non-African American GFR(CKD) >90 (>60 ml/min/1.73 sqM); Potassium 4.3 mmol/L (3.5-5.1); Sodium 145 mmol/L (137-145); Total Bilirubin 0.5 mg/dL (0.2-1.3)
--- NOTE | 2020-04-11 20:31 | US ---
EXAMINATION TYPE: US abdomen limited DATE OF EXAM: 04/11/2020 COMPARISON: Ultrasound 02/21/2020 CLINICAL HISTORY: RUQ pain EXAM MEASUREMENTS: Liver Length: 14.6 cm Gallbladder Wall: 0.21 cm CBD: 0.42 cm Right Kidney: 10.1 x 5.4 x 5.0 cm *Limited visualization, due to gas. Pancreas: Appears wnl, slightly limited due to gas. Liver: Appears wnl. Gallbladder: Hyperechoic focus demonstrating acoustic shadowing seen dependently within the gallblad osmani, measuring 1.0 x 0.7 x 0.4 cm. Evidence for sonographic Beyer's sign: equivocal CBD: Normal, measuring 4 mm in caliber Right Kidney: No hydronephrosis or masses seen IMPRESSION: 1. Cholelithiasis without evidence of cholecystitis. 2. No other findings.
--- NOTE | 2020-04-11 20:36 | XR ---
EXAMINATION TYPE: XR KUB 2 upright views DATE OF EXAM: 04/11/2020 8:26 PM CLINICAL HISTORY: Right upper quadrant pain TECHNIQUE: 2 upright views COMPARISON: None. FINDINGS: Scattered gas is seen in non-distended small bowel loops. Gas and fecal material is seen in non-distended colon. There is no visceromegaly, pneumoperitoneum, or abnormal calcification apprecia norma. The lung bases are clear and the osseous structures are intact. IMPRESSION: No acute radiographic process.
--- NOTE | 2020-04-11 20:38 | ED ---
Abdominal Pain HPI - General Chief Complaint: Abdominal Pain Stated Complaint: Feeling faint Time Seen by Provider: 04/11/20 18:41 Source: patient Mode of arrival: ambulatory Limitations: no limitations - History of Present Illness Initial Comments: 29-year-old feel presenting today for chief complaint of right upper quadrant abdominal pain. Patient states that she has had issues with her gallbladder on and off she states she recently had an ultrasound about a month ago that was negative. Patient states she has pain frequently after eating especially fatty meals. Patient states today after he talked she had right upper quadrant pain she states that made her feel faint and nauseated and her whole-body felt weird. Patient denies fevers, diarrhea or vomiting. Denies chest pain or shortness of breath denies pain to deep inspiration. Denies leg swelling. Patient states that the pain has subsided now she has a slight headache she states she is not sure if this stress lately because she has had increasing anxiety and life stressors lately. Patient denies sudden onset of headache for the spinning the worst headache of her life. Patient denies any speech changes visual changes nausea vomiting neck pain weakness or sensation deficits. Patient states she presented today to have her gallbladder evaluated. Many rhesus negative upon arrival patient appears well nontoxic distress - Related Data Previous Rx's Medication Instructions Recorded LORazepam [Ativan] 0.5 mg PO BID PRN 3 Days #6 tab 10/31/19 Allergies Allergy/AdvReac Type Severity Reaction Status Date / Time No Known Allergies Allergy Verified 04/11/20 18:29 Review of Systems ROS Statement: Those systems with pertinent positive or pertinent negative responses have been documented in the HPI. ROS Other: All systems not noted in ROS Statement are negative. Past Medical History Past Medical History: Asthma History of Any Multi-Drug Resistant Organisms: None Reported Past Surgical History: No Surgical Hx Reported Past Anesthesia/Blood Transfusion Reactions: No Reported Reaction Past Psychological History: Anxiety Smoking Status: Never smoker Past Alcohol Use History: None Reported Past Drug Use History: None Reported - Past Family History Father Family Medical History: No Reported History General Exam - General Exam Comments Initial Comments: General: The patient is awake and alert, in no distress Eye: +3 mm pupils are equal, round and reactive to light, extra-ocular movements are intact. No nystagmus. There is normal conjunctiva bilaterally. No signs of icterus. Ears, nose, mouth and throat: There are moist mucous membranes and no oral lesions. Neck: The neck is supple, there is no tenderness or JVD. Cardiovascular: There is a regular rate and rhythm. No murmur, rub or gallop is appreciated. Respiratory: Lungs are clear to auscultation, respirations are non-labored, breath sounds are equal. No wheezes, stridor, rales, or rhonchi. Gastrointestinal: Soft, non-distended, mild RUQ tenderness to palation of the abdomen without masses or organomegaly noted. There is no rebound or guarding present. Musculoskeletal: Normal ROM, no tenderness. Strength 5/5 of the UE and LE b/ l. Sensation intact of the UE and LE b/l. Radial pulses equal bilaterally 2+. Neurological: A&O x 3. CN II-XII intact, There are no obvious motor or sensory deficits. Coordination appears grossly intact. Speech is normal. Skin: Skin is warm and dry and no rashes or lesions are noted. Psychiatric: Cooperative, appropriate mood & affect, normal judgment. Limitations: no limitations Course Vital Signs 04/11/20 04/11/20 18:30 21:01 Temperature 97.8 F 97.8 F Pulse Rate 95 95 Respiratory 18 18 Rate Blood Pressure 135/86 130/87 O2 Sat by Pulse 100 100 Oximetry Medical Decision Making - Medical Decision Making 29yo female presenting for cc of RUQ pain. concern for gallbladder disease. Pain on exam. Labs stable .US consistent with stones. Pain improved. Pt states she now has a headache, she states she has been stressed. Focal neurological deficits. Denies this being the worse headache of her life. Denies sudden onset. Patient was given a Tylenol. Patient is agreeable to return for worsening abdominal or head pain. patient discharged appearing well. no distress. Dr Baum agreeable to care plan. - Lab Data Result diagrams: 04/11/20 19:14 04/11/20 19:14 Lab Results 04/11/20 04/11/20 04/11/20 Range/Units 19:14 19:14 19:14 WBC 9.7 (3.8-10.6) k/uL RBC 4.72 (3.80-5.40) m/uL Hgb 15.0 (11.4-16.0) gm/dL Hct 45.1 (34.0-46.0) % MCV 95.4 (80.0-100.0) fL MCH 31.8 (25.0-35.0) pg MCHC 33.3 (31.0-37.0) g/dL RDW 12.6 (11.5-15.5) % Plt Count 367 (150-450) k/uL MPV 7.2 Neutrophils % 63 % Lymphocytes % 26 % Monocytes % 3 % Eosinophils % 5 % Basophils % 1 % Neutrophils # 6.1 (1.3-7.7) k/uL Lymphocytes # 2.5 (1.0-4.8) k/uL Monocytes # 0.3 (0-1.0) k/uL Eosinophils # 0.5 (0-0.7) k/uL Basophils # 0.1 (0-0.2) k/uL Sodium 145 (137-145) mmol/L Potassium 4.3 (3.5-5.1) mmol/L Chloride 107 (98-107) mmol/L Carbon Dioxide 24 (22-30) mmol/L Anion Gap 14 mmol/L BUN 7 (7-17) mg/dL Creatinine 0.54 (0.52-1.04) mg/dL Est GFR (CKD-EPI)AfAm >90 (>60 ml/min/1.73 sqM) Est GFR (CKD-EPI)NonAf >90 (>60 ml/min/1.73 sqM) Glucose 83 (74-99) mg/dL Plasma Lactic Acid [place] 1.8 (0.7-2.0) mmol/L Calcium 10.7 H (8.4-10.2) mg/dL Total Bilirubin 0.5 (0.2-1.3) mg/dL AST 25 (14-36) U/L ALT 11 (4-34) U/L Alkaline Phosphatase 56 (38-126) U/L Troponin I (0.000-0.034) ng/mL Total Protein 9.0 H (6.3-8.2) g/dL Albumin 5.2 H (3.5-5.0) g/dL Amylase 85 (30-110) U/L Lipase 80 (23-300) U/L Urine Color Urine Appearance (Clear) Urine pH (5.0-8.0) Ur Specific [place] (1.001-1.035) Urine Protein (Negative) Urine Glucose (UA) (Negative) Urine Ketones (Negative) Urine Blood (Negative) Urine Nitrite (Negative) Urine Bilirubin (Negative) Urine Urobilinogen (<2.0) mg/dL Ur Leukocyte Esterase (Negative) Urine RBC (0-5) /hpf Urine WBC (0-5) /hpf Ur Squamous Epith Cells (0-4) /hpf Urine Bacteria (None) /hpf 04/11/20 04/11/20 Range/Units 19:14 19:17 WBC (3.8-10.6) k/uL RBC (3.80-5.40) m/uL Hgb (11.4-16.0) gm/dL Hct (34.0-46.0) % MCV (80.0-100.0) fL MCH (25.0-35.0) pg MCHC (31.0-37.0) g/dL RDW (11.5-15.5) % Plt Count (150-450) k/uL MPV Neutrophils % % Lymphocytes % % Monocytes % % Eosinophils % % Basophils % % Neutrophils # (1.3-7.7) k/uL Lymphocytes # (1.0-4.8) k/uL Monocytes # (0-1.0) k/uL Eosinophils # (0-0.7) k/uL Basophils # (0-0.2) k/uL Sodium (137-145) mmol/L Potassium (3.5-5.1) mmol/L Chloride (98-107) mmol/L Carbon Dioxide (22-30) mmol/L Anion Gap mmol/L BUN (7-17) mg/dL Creatinine (0.52-1.04) mg/dL Est GFR (CKD-EPI)AfAm (>60 ml/min/1.73 sqM) Est GFR (CKD-EPI)NonAf (>60 ml/min/1.73 sqM) Glucose (74-99) mg/dL Plasma Lactic Acid [place] (0.7-2.0) mmol/L Calcium (8.4-10.2) mg/dL Total Bilirubin (0.2-1.3) mg/dL AST (14-36) U/L ALT (4-34) U/L Alkaline Phosphatase (38-126) U/L Troponin I <0.012 (0.000-0.034) ng/mL Total Protein (6.3-8.2) g/dL Albumin (3.5-5.0) g/dL Amylase (30-110) U/L Lipase (23-300) U/L Urine Color Light Yellow Urine Appearance Clear (Clear) Urine pH 6.0 (5.0-8.0) Ur Specific [place] 1.005 (1.001-1.035) Urine Protein Negative (Negative) Urine Glucose (UA) Negative (Negative) Urine Ketones Negative (Negative) Urine Blood Large H (Negative) Urine Nitrite Negative (Negative) Urine Bilirubin Negative (Negative) Urine Urobilinogen <2.0 (<2.0) mg/dL Ur Leukocyte Esterase Small H (Negative) Urine RBC 60 H (0-5) /hpf Urine WBC 21 H (0-5) /hpf Ur Squamous Epith Cells 1 (0-4) /hpf Urine Bacteria Rare H (None) /hpf Disposition Clinical Impression: Dysfunctional gallbladder, Headache Disposition: HOME SELF-CARE Condition: Good Instructions (If sedation given, give patient instructions): Biliary Colic (ED), Gallstones (ED), Low Fat Diet (ED) Additional Instructions: Please use medication as discussed. Please follow-up with family doctor in the next 2 days, please follow-up with general surgery. Please return to emergency room if the symptoms increase or worsen or for any other concerns. Is patient prescribed a controlled substance at d/c from ED?: No Referrals: Jemal Olivares MD [Primary Care Provider] - 1-2 days Charles Meier MD [Medical Doctor] - 1-2 days Time of Disposition: 20:38
[2020-04-11] MEDS ORDERED: ACETAMINOPHEN TAB 325 MG TAB PO STA (20:46)
[2020-04-11 21:01] VITALS: BP 130/87
== END 2020-04-11 21:04 | disposition home or self-care (01) ==
LOC: EC 18:19
DX: K82.8 Other specified diseases of gallbladder (principal); R51.9 Headache, unspecified; R29.818 Other symptoms and signs involving the nervous system
CPT/HCPCS: 36415; 74018; 76705; 80053; 81001; 82150; 83605; 83690; 84484; 85025; 87086; 93005; 99284

== ENCOUNTER 2020-04-15 02:18 | Emergency (ER) | payer BC ==
[2020-04-15 02:25] VITALS: RESP 16
[2020-04-15] MEDS ORDERED: methylPREDNISolone SOD SUCCI 125 MG/2 ML VIAL IV STA (02:32)
[2020-04-15] MEDS ORDERED: diphenhydrAMINE 50 MG/ML 1 ML VIAL IVP STA (02:32)
[2020-04-15] MEDS ORDERED: FAMOTIDINE 20 MG/2 ML VIAL IV STA (02:32)
[2020-04-15] MEDS ORDERED: SODIUM CHLORIDE 0.9% 500 ML 500 ML IV ONE (02:32)
--- NOTE | 2020-04-15 02:34 | ED ---
Allergic Reaction HPI - General Chief complaint: Allergic Reaction Stated complaint: Allergic Reaction Time Seen by Provider: 04/15/20 02:26 Source: patient Mode of arrival: wheelchair Limitations: no limitations - History of Present Illness Initial Comments: 29-year-old female presenting today for chief complaint of possible ALLERGIC reaction. Patient states that she took ibuprofen around 9 PM she states she woke up at 1AM with swollen eyes she states became anxious. Patient denies rashes, tongue swelling. She states initially she felt anxious with dyspnea because of the swelling but states that went away. Denies known ibuprofen allergy, states she ate salmon for dinner otherwise no shellfish or peanut containing products. Patient denies vomiting, diarrhea, abdominal pain, wheezing. She denies syncope/presyncope. Patient denies additional complaints. Upon arrival patient appears well nontoxic in no acute distress. No tachypnea - Related Data Previous Rx's Medication Instructions Recorded LORazepam [Ativan] 0.5 mg PO BID PRN 3 Days #6 tab 10/31/19 EPINEPHrine (Auto Inject) [Epipen] 0.3 mg IM ONCE PRN 2 Days #2 pen 04/15/20 predniSONE 50 mg PO DAILY 4 Days #4 tab 04/15/20 Allergies Allergy/AdvReac Type Severity Reaction Status Date / Time No Known Allergies Allergy Verified 04/15/20 02:22 Review of Systems ROS Statement: Those systems with pertinent positive or pertinent negative responses have been documented in the HPI. ROS Other: All systems not noted in ROS Statement are negative. Past Medical History Past Medical History: Asthma History of Any Multi-Drug Resistant Organisms: None Reported Past Surgical History: No Surgical Hx Reported Past Anesthesia/Blood Transfusion Reactions: No Reported Reaction Past Psychological History: Anxiety Smoking Status: Never smoker Past Alcohol Use History: None Reported Past Drug Use History: None Reported - Past Family History Father Family Medical History: No Reported History General Exam - General Exam Comments Initial Comments: General: The patient is awake and alert, in no distress Eye: +3 mm pupils are equal, round and reactive to light, extra-ocular movements are intact. No nystagmus. There is normal conjunctiva bilaterally. No signs of icterus. Ears, nose, mouth and throat: There are moist mucous membranes and no oral lesions. Tongue swelling, very mild swelling of the lips. Patient has patent oropharynx without erythema. No obvious ocular swelling. Neck: The neck is supple, there is no tenderness or JVD. Cardiovascular: There is a regular rate and rhythm. No murmur, rub or gallop is appreciated. Respiratory: Lungs are clear to auscultation, respirations are non-labored, breath sounds are equal. No wheezes, stridor, rales, or rhonchi. No retractions no abdominal breathing Gastrointestinal: Soft, non-distended, non-tender abdomen without masses or organomegaly noted. There is no rebound or guarding present. Musculoskeletal: Normal ROM, no tenderness. Strength 5/5. Sensation intact. Radial pulses equal bilaterally 2+. Neurological: A&O x 3. CN II-XII intact grossly, There are no obvious motor or sensory deficits. Coordination appears grossly intact. Speech is normal. Skin: Skin is warm and dry and no rashes or lesions are noted. No urticarial noted. Psychiatric: Cooperative, appropriate mood & affect, normal judgment. Limitations: no limitations Course Vital Signs 04/15/20 04/15/20 02:22 03:40 Pulse Rate 68 71 Respiratory 16 16 Rate Blood Pressure 123/76 112/71 O2 Sat by Pulse 100 99 Oximetry Medical Decision Making - Medical Decision Making Patient presents for possible allergic reaction, possible mild lip swelling. no obvious swelling of other aspect of face including of eyes or tongue, no wheezing abdominal pain, diarrhea or vomiting. Patient shows no signs respiratory distress she is not hypotensive nor tachycardic. At this time patient was given the ALLERGY cocktail including Pepcid Benadryl and slight Medrol. She'll be discharged home on prednisone and educated on the use of an EpiPen. Patient is agreeable to his care for discharge at this time I did recommend avoiding Kellogg as well as NSAIDs until she sees an pharmacology teacher. Patient verbalized understanding was discharged appearing well. Dr Jie pederson eeable to care plan. Disposition Clinical Impression: Allergic reaction Disposition: HOME SELF-CARE Condition: Good Instructions (If sedation given, give patient instructions): Anaphylaxis (ED) Additional Instructions: Please use medication as discussed. Please follow-up with family doctor in the next 2 days.. Please return to emergency room if the symptoms increase or worsen or for any other concerns. Prescriptions: EPINEPHrine (Auto Inject) [Epipen] 0.3 mg IM ONCE PRN 2 Days #2 pen PRN Reason: Anaphylaxis predniSONE 50 mg PO DAILY 4 Days #4 tab Is patient prescribed a controlled substance at d/c from ED?: No Referrals: Jemal Olivares MD [Primary Care Provider] - 1-2 days Time of Disposition: 03:00 (04/15/2020)
[2020-04-15 03:52] VITALS: BP 112/71; PULSE 71
== END 2020-04-15 03:40 | disposition home or self-care (01) ==
LOC: EC 02:18
DX: T78.40XA Allergy, unspecified, initial encounter (principal); J45.909 Unspecified asthma, uncomplicated; F41.9 Anxiety disorder, unspecified
CPT/HCPCS: J1200; J2930; 96374; 96375; 99283

== ENCOUNTER → 2020-05-02 | Outpatient (CLI) | payer BC | END | disposition home or self-care (01) | LOC: LABPAT 10:44 | PROVIDERS: ATTEND Surgery | DX: Z20.822 Contact with and (suspected) exposure to COVID-19 (principal) | CPT/HCPCS: U0003; C9803; U0005 ==

== ENCOUNTER 2020-05-08 10:10 | Day surgery (SDC) | payer BC ==
[2020-05-06 14:09] VITALS: BMI 28.9
[~2020-05-08 10:10] MED LIST: HYDROmorphone 0.5 MG/0.5 ML SYRINGE IVP PRN; LACTATED RINGERS 1,000 ML IV SCH; ONDANSETRON 4 MG/2 ML VIAL IVP ONE; Pre Op ABX Message 1 EACH MISC MISCELLANE ONE; fentaNYL (PF) 50 MCG/ML 2 ML AMP IV PRN
[2020-05-08] MEDS ORDERED: LIDOCAINE 1% (10MG/ML) FOR IV START INTRADERMA ONE (10:55)
[2020-05-08] MEDS ORDERED: ONDANSETRON 4 MG/2 ML VIAL ONE (10:57)
[2020-05-08] MEDS ORDERED: DEXAMETHASONE SOD PHOSPHATE 10 MG/ML 1 ML VIAL IV ONE (10:59)
[2020-05-08 11:17] LABS: ALT 8 U/L (4-34); AST 22 U/L (14-36); African American GFR (CKD) >90 (>60 ml/min/1.73 sqM); Albumin 4.6 g/dL (3.5-5.0); Alkaline Phosphatase 49 U/L (38-126); Anion Gap 10 mmol/L; Blood Urea Nitrogen 6 mg/dL (7-17); Calcium 9.9 mg/dL (8.4-10.2); Carbon Dioxide 23 mmol/L (22-30); Chloride 108 mmol/L (98-107); Glucose 79 mg/dL (74-99); Non-African American GFR(CKD) >90 (>60 ml/min/1.73 sqM); Sodium 141 mmol/L (137-145); Total Protein 7.8 g/dL (6.3-8.2)
[2020-05-08] MEDS ORDERED: LIDOCAINE 1% INJ 10MG/ML (20 ML MDV) ONE (11:28)
[2020-05-08] MEDS ORDERED: SUCCINYLCHOLINE CHLORIDE 100 MG/5 ML SYR IV ONE (11:28)
[2020-05-08] MEDS ORDERED: NEOSTIGMINE 1 MG/ML 10 ML VIAL ONE (11:28)
[2020-05-08] MEDS ORDERED: GLYCOPYRROLATE 0.2 MG/ML 2 ML VIAL ONE (11:28)
[2020-05-08] MEDS ORDERED: PROPOFOL 10 MG/ML 20 ML VIAL IV ONE (11:28)
[2020-05-08] MEDS ORDERED: MIDAZOLAM 2 MG/2 ML VIAL ONE (11:28)
[2020-05-08] MEDS ORDERED: fentaNYL (PF) 50 MCG/ML 2 ML AMP ONE (11:28)
[2020-05-08] MEDS ORDERED: ROCURONIUM 10 MG/ML (5 ML VIAL) IV ONE (11:28)
--- NOTE | 2020-05-08 11:29 | P.HPADDEND ---
H&P Addendum H&P Addendum Date: 05/08/20 The patient had a UA done showing bilirubin. LFTs were obtained preoperatively and are all within normal range. We'll proceed with laparoscopic cholecystectomy
[2020-05-08] MEDS ORDERED: BUPIVACAINE (PF) 0.25% 30 ML VIAL SQ ONE (11:33)
[2020-05-08] MEDS ORDERED: LIDOCAINE 1%-EPI 1:100,000 20 ML VIAL SQ ONE (11:33)
[2020-05-08] MEDS ORDERED: ceFAZolin 1,000 MG VIAL IVPB ONE (11:40)
--- NOTE | 2020-05-08 12:29 | P.OP ---
Date of Procedure: 05/08/20 Preoperative Diagnosis: Cholelithiasis, chronic cholecystitis Postoperative Diagnosis: Cholelithiasis, chronic cholecystitis Procedure(s) Performed: Laparoscopic cholecystectomy Anesthesia: ASHLEY Surgeon: Janiya Antoine Estimated Blood Loss (ml): 5 Pathology: other (Gallbladder) Condition: stable Disposition: PACU Description of Procedure: The patient is a 29-year-old female who presented with abdominal pain which was worse with fatty foods. She is taken to the OR where she is prepped and draped in the usual sterile manner under a general endotracheal anesthetic. An infraumbilical incision was made and a Veress needle was placed into the abdominal cavity. Pneumoperitoneum was established with CO2 gas. Her abdominal wall was very lax, even with a normal insufflation pressure so a small incision was made in the fascia and peritoneum and a balloon trocar was inserted. The diaphragm, liver, large and small bowel were all grossly normal where they were seen. The gallbladder is grasped and retracted towards the anterior abdominal wall. Arias's pouch is identified, it is grasped and retracted laterally. The cystic duct and cystic artery are dissected free. They are triply clipped and cut. The gallbladder is dissected free from the liver bed. Small bleeding points are controlled with electrocautery. A small opening had been made in the gallbladder during dissection so the bile was aspirated. The gallbladder is then removed through the umbilical port site. The liver bed is examined and noted to be hemostatic. The excess irrigant is suctioned out. The pneumoperitoneum was released. The trochars were removed. The fascia at the umbilicus was closed with 0 Vicryl. The skin incisions were closed with 4-0 Vicryl in a subcuticular manner. Steri-Strips and dressings were applied. She tolerated the procedure without difficulty and was taken to recovery room in satisfactory condition. According to or personnel, all counts were correct. Plan - Discharge Summary Discharge Rx Participant: No New Discharge Prescriptions: New traMADol HCL 1 - 2 mg PO Q6HR PRN #20 tablet PRN Reason: Pain No Action EPINEPHrine (Auto Inject) [Epipen] 0.3 mg IM ONCE PRN 2 Days #2 pen PRN Reason: Anaphylaxis Famotidine [Pepcid] 40 mg PO DAILY Discharge Medication List EPINEPHrine (Auto Inject) [Epipen] 0.3 mg IM ONCE PRN 2 Days #2 pen 04/15/20 [Rx] Famotidine [Pepcid] 40 mg PO DAILY 05/06/20 [History] traMADol HCL 1 - 2 mg PO Q6HR PRN #20 tablet 05/08/20 [Rx] Follow up Appointment(s)/Referral(s): Janiya Antoine DO [Doctor of Osteopathic Medicine] - 2 Weeks Activity/Diet/Wound Care/Special Instructions: Ice to incision for 24-48 hours. Leave the Band-Aids on until . the Band-Aids may be removed then you may shower. If there is a small amount of drainage or the incisions are rubbing on your clothing, you can replace these. Low-fat diet 1-2 [address] while taking pain holes. You may take Tylenol or Motrin instead of the pain pills. Call if questions or concerns Discharge Disposition: HOME SELF-CARE
[2020-05-08 12:45] VITALS: TEMP 98
[2020-05-08] MEDS ORDERED: LACTATED RINGERS 1,000 ML IV ONE (12:58)
[2020-05-08] MEDS ORDERED: traMADol 50 MG TAB ONE (13:57)
[2020-05-08] MEDS ORDERED: traMADol 50 MG TAB PO ONE (13:58)
[2020-05-08 15:16] VITALS: BP 121/82; PULSE 56; RESP 16
== END 2020-05-08 15:15 | disposition home or self-care (01) ==
LOC: OR 10:10
PROVIDERS: ATTEND Surgery
DX: K80.10 Calculus of gallbladder with chronic cholecystitis without obstruction (principal); N39.0 Urinary tract infection, site not specified; J45.909 Unspecified asthma, uncomplicated; F41.9 Anxiety disorder, unspecified; K21.9 Gastro-esophageal reflux disease without esophagitis; Z79.899 Other long term (current) drug therapy; Z88.6 Allergy status to analgesic agent; Z91.013 Allergy to seafood; Z83.3 Family history of diabetes mellitus
CPT/HCPCS: 81025; 88304; 80053; 47562; J2250; J1100; J2710; J2405; J0690; J2001; J3010; J0330; J2704; J1170

== ENCOUNTER 2020-05-15 13:07 | Emergency (ER) | payer BC ==
[2020-05-15 13:20] VITALS: TEMP 97.4
[2020-05-15] MEDS ORDERED: predniSONE 20 MG TAB PO STA (13:20)
[2020-05-15] MEDS ORDERED: FAMOTIDINE 20 MG TAB PO STA (13:20)
--- NOTE | 2020-05-15 13:22 | ED ---
Allergic Reaction HPI - General Chief complaint: Allergic Reaction Stated complaint: Allergic reacton Time Seen by Provider: 05/15/20 13:15 Source: patient Mode of arrival: EMS Limitations: no limitations - History of Present Illness Initial Comments: 29-year-old female status post cholecystectomy presents emergency room for ALLERGIC reaction. Patient was seen in the emergency department one month ago for similar complaint. States that she took a dose of ibuprofen today as she was unsure if this is what caused her last ALLERGIC reaction. Dose was taken around noon. States that shortly afterwards she had bilateral eye swelling and a sensation that her airway was closing off. Had heaviness in her chest. She did take a dose of Benadryl at home. Symptoms continue to worsen therefore she called EMS and administered her EpiPen. EpiPen administered around 1 PM. Patient also reports to ALLERGIC reaction to [facility]. Denies any new exposures. No hives. Denies any tongue swelling. No concern for . No other alleviating, Perceptin or modifying factors - Related Data Home Medications Medication Instructions Recorded Confirmed Acetaminophen [Tylenol] 500 - 1,000 mg PO Q4HR PRN 05/15/20 05/15/20 Previous Rx's Medication Instructions Recorded EPINEPHrine (Auto Inject) [Epipen] 0.3 mg IM ONCE PRN 2 Days #2 pen 04/15/20 traMADol HCL 1 - 2 mg PO Q6HR PRN #20 tablet 05/08/20 Famotidine [Pepcid] 20 mg PO BID #10 tablet 05/15/20 predniSONE [Deltasone] 20 mg PO BID #10 tab 05/15/20 Allergies Allergy/AdvReac Type Severity Reaction Status Date / Time ibuprofen Allergy Intermediate Swelling Verified 05/15/20 13:21 and difficulty breathing salmon Allergy swelling Uncoded 05/06/20 14:05 and difficulty breathing Review of Systems ROS Statement: Those systems with pertinent positive or pertinent negative responses have been documented in the HPI. ROS Other: All systems not noted in ROS Statement are negative. Past Medical History Past Medical History: Asthma History of Any Multi-Drug Resistant Organisms: None Reported Past Surgical History: Cholecystectomy Past Anesthesia/Blood Transfusion Reactions: No Reported Reaction Past Psychological History: Anxiety Smoking Status: Never smoker - Past Family History Father Family Medical History: No Reported History General Exam Limitations: no limitations Course Vital Signs 05/15/20 05/15/20 13:12 14:33 Temperature 97.4 F L Pulse Rate 70 71 Respiratory 18 17 Rate Blood Pressure 109/64 122/78 O2 Sat by Pulse 100 98 Oximetry Medical Decision Making - Medical Decision Making Upon arrival the patient is placed in hallway 14. There are history and physical exam was performed. Patient does not demonstrate any signs of airway compromise. She did take Benadryl at home. Patient was additionally given a dose of steroids and Pepcid. She is observed in the emergency room for approximately an hour and a half without return of her symptoms. Patient will be discharged home. Given an additional 5 days' worth of steroids, Pepcid and will continue taking Benadryl as needed. Patient may hold off on the steroids if symptoms do not return as she recently had surgery and is concerned about delayed healing. Patient has one remaining EpiPen at home. Recommended that she stay away from ibuprofen. Return to the emergency room for any new or worsening symptoms. Patient was discharged home in stable condition Disposition Clinical Impression: Allergic reaction Disposition: HOME SELF-CARE Condition: Stable Instructions (If sedation given, give patient instructions): General Allergic Reaction (ED) Additional Instructions: Please take the Pepcid and Benadryl for the next 5 days. Take the Prednisone if you have worsening swelling. Return to the ED for any new or worsening symptoms. Avoid Ibprofen. Prescriptions: predniSONE [Deltasone] 20 mg PO BID #10 tab Famotidine [Pepcid] 20 mg PO BID #10 tablet Is patient prescribed a controlled substance at d/c from ED?: No Referrals: Jemal Olivares MD [Primary Care Provider] - 1-2 days Time of Disposition: 14:24
[2020-05-15 14:34] VITALS: BP 122/78; PULSE 71; RESP 17
== END 2020-05-15 14:34 | disposition home or self-care (01) ==
LOC: EC 13:07
DX: F41.9 Anxiety disorder, unspecified (principal); T39.315A Adverse effect of propionic acid derivatives, initial encounter; J45.909 Unspecified asthma, uncomplicated; R22.0 Localized swelling, mass and lump, head
CPT/HCPCS: 99284; J7512

== ENCOUNTER 2020-06-26 02:15 | Emergency (ER) | payer BC ==
[2020-06-26 02:34] VITALS: TEMP 98.1
[2020-06-26] MEDS ORDERED: LORazepam 1 MG TAB PO STA (03:31)
--- NOTE | 2020-06-26 03:32 | ED ---
Anxiety HPI - General Chief Complaint: Anxiety Stated Complaint: Anxiety Time Seen by Provider: 06/26/20 02:19 Source: patient Mode of arrival: EMS - Related Data Home Medications: Home Medications Medication Instructions Recorded Confirmed Acetaminophen [Tylenol] 500 - 1,000 mg PO Q4HR PRN 05/15/20 05/15/20 Previous Rx's Medication Instructions Recorded EPINEPHrine (Auto Inject) [Epipen] 0.3 mg IM ONCE PRN 2 Days #2 pen 04/15/20 traMADol HCL 1 - 2 mg PO Q6HR PRN #20 tablet 05/08/20 Famotidine [Pepcid] 20 mg PO BID #10 tablet 05/15/20 predniSONE [Deltasone] 20 mg PO BID #10 tab 05/15/20 Allergies/Adverse Reactions: Allergies Allergy/AdvReac Type Severity Reaction Status Date / Time ibuprofen Allergy Intermediate Swelling Verified 06/26/20 02:34 and difficulty breathing salmon Allergy swelling Uncoded 06/26/20 02:34 and difficulty breathing Review of Systems ROS Statement: Those systems with pertinent positive or pertinent negative responses have been documented in the HPI. ROS Other: All systems not noted in ROS Statement are negative. Past Medical History Past Medical History: Asthma History of Any Multi-Drug Resistant Organisms: None Reported Past Surgical History: Cholecystectomy Past Anesthesia/Blood Transfusion Reactions: No Reported Reaction Past Psychological History: Anxiety Smoking Status: Never smoker Past Alcohol Use History: None Reported Past Drug Use History: None Reported - Past Family History Father Family Medical History: No Reported History General Exam Limitations: no limitations Course Vital Signs 06/26/20 02:29 Temperature 98.1 F Pulse Rate 73 Respiratory 20 Rate Blood Pressure 122/82 O2 Sat by Pulse 100 Oximetry Medical Decision Making - Lab Data Lab Results 06/26/20 Range/Units 03:39 Coronavirus (PCR) Not Detected (Not Detectd) - EKG Data -: EKG Interpreted by Me (EKG is sinus rhythm 74, TN 170 QRS 08 QTc 426) Disposition Clinical Impression: Acute anxiety, Chest pain Disposition: HOME SELF-CARE Condition: Good Instructions (If sedation given, give patient instructions): Generalized Anxiety Disorder (ED), Chest Pain (ED) Is patient prescribed a controlled substance at d/c from ED?: No Referrals: Jemal Olivares MD [Primary Care Provider] - 1-2 days
--- NOTE | 2020-06-26 04:27 | XR ---
EXAM: XR Chest, 2 Views CLINICAL HISTORY: Chest pain TECHNIQUE: Frontal and lateral views of the chest. COMPARISON: Chest x-ray dated 10/06/2019 FINDINGS: Lungs: Unremarkable. Pleural space: Unremarkable. Heart: Unremarkable. Mediastinum: Unremarkable. Bones/joints: Unremarkable. IMPRESSION: Normal chest x-rays.
[2020-06-26 04:45] VITALS: BP 116/80; PULSE 97; RESP 18
== END 2020-06-26 04:45 | disposition home or self-care (01) ==
LOC: EC 02:15
DX: F41.9 Anxiety disorder, unspecified (principal); R07.9 Chest pain, unspecified; J45.909 Unspecified asthma, uncomplicated; Z20.822 Contact with and (suspected) exposure to COVID-19
CPT/HCPCS: 71046; 87635; 93005; 99284

== ENCOUNTER 2020-08-14 02:51 | Emergency (ER) | payer BC ==
[2020-08-14 02:57] VITALS: TEMP 98.6
--- NOTE | 2020-08-14 03:13 | ED ---
SOB HPI - General Chief Complaint: Shortness of Breath Stated Complaint: SOB Time Seen by Provider: 08/14/20 02:53 Source: patient, RN notes reviewed, old records reviewed Mode of arrival: ambulatory Limitations: no limitations - History of Present Illness Initial Comments: This is a 29-year-old female to the ER for evaluation patient presents today for evaluation of shortness of breath cough and congestion. No fevers. Some chest pain. Admits to mild anxiety. No recent history of travel or sick contacts. Patient has history of similar issue in the past. MD Complaint: cough, chest pain, anxiety -: hour(s), days(s) Severity: mild Severity scale (1-10): 2 Quality: aching Consistency: intermittent Improves With: nothing Worsens With: nothing Known History Of: asthma Context: recent URI Associated Symptoms: chest pain Treatments Prior to Arrival: none - Related Data Home Medications Medication Instructions Recorded Confirmed Acetaminophen [Tylenol] 500 - 1,000 mg PO Q4HR PRN 05/15/20 05/15/20 Previous Rx's Medication Instructions Recorded EPINEPHrine (Auto Inject) [Epipen] 0.3 mg IM ONCE PRN 2 Days #2 pen 04/15/20 traMADol HCL 1 - 2 mg PO Q6HR PRN #20 tablet 05/08/20 Famotidine [Pepcid] 20 mg PO BID #10 tablet 05/15/20 predniSONE [Deltasone] 20 mg PO BID #10 tab 05/15/20 Albuterol Sulfate [Proair Hfa] 1 - 2 puff INHALATION Q4H PRN #1 08/14/20 inhaler Azithromycin [Zithromax Z-pack (6 0 mg PO DIRECTED #1 pack 08/14/20 tabs)] predniSONE 50 mg PO DAILY #5 tab 08/14/20 Allergies Allergy/AdvReac Type Severity Reaction Status Date / Time ibuprofen Allergy Intermediate Swelling Verified 08/14/20 02:57 and difficulty breathing salmon Allergy swelling Uncoded 08/14/20 02:57 and difficulty breathing Review of Systems ROS Statement: Those systems with pertinent positive or pertinent negative responses have been documented in the HPI. ROS Other: All systems not noted in ROS Statement are negative. Past Medical History Past Medical History: Asthma History of Any Multi-Drug Resistant Organisms: None Reported Past Surgical History: Cholecystectomy Past Anesthesia/Blood Transfusion Reactions: No Reported Reaction Past Psychological History: Anxiety Smoking Status: Never smoker Past Alcohol Use History: None Reported Past Drug Use History: None Reported - Past Family History Father Family Medical History: No Reported History General Exam Limitations: no limitations General appearance: alert, in no apparent distress, anxious Head exam: Present: atraumatic, normocephalic, normal inspection Eye exam: Present: normal appearance, PERRL, EOMI. Absent: scleral icterus, conjunctival injection, periorbital swelling ENT exam: Present: normal exam, mucous membranes moist Neck exam: Present: normal inspection. Absent: tenderness, meningismus, lymphadenopathy Respiratory exam: Present: wheezes. Absent: normal lung sounds bilaterally, respiratory distress, rales, rhonchi, stridor Cardiovascular Exam: Present: regular rate, normal rhythm, normal heart sounds. Absent: systolic murmur, diastolic murmur, rubs, gallop, clicks GI/Abdominal exam: Present: soft, normal bowel sounds. Absent: distended, tenderness, guarding, rebound, rigid Extremities exam: Present: normal inspection, full ROM, normal capillary refill. Absent: tenderness, pedal edema, joint swelling, calf tenderness Back exam: Present: normal inspection Neurological exam: Present: alert, oriented X3, CN II-XII intact Psychiatric exam: Present: normal affect, normal mood Skin exam: Present: warm, dry, intact, normal color. Absent: rash Course Vital Signs 08/14/20 08/14/20 08/14/20 02:55 03:56 04:01 Temperature 98.6 F Pulse Rate 100 100 104 H Respiratory 20 Rate Blood Pressure 128/82 O2 Sat by Pulse 100 Oximetry 08/14/20 04:28 Temperature Pulse Rate 97 Respiratory 17 Rate Blood Pressure 129/73 O2 Sat by Pulse 99 Oximetry - Reevaluation(s) Reevaluation #1: Medical records reviewed Patient symptoms are improved significantly here in the ER Patient in no acute distress Patient informed of results and questions answered Medical Decision Making - Medical Decision Making 29 female presents to the ER for evaluation. Patient is acute bronchitis with history of asthma. Patient given acute medication and can be discharged home - Radiology Data Radiology results: report reviewed (Chest x-rays negative for acute disease), image reviewed Disposition Clinical Impression: Asthma with acute exacerbation, Bronchitis Disposition: HOME SELF-CARE Condition: Good Instructions (If sedation given, give patient instructions): Asthma (ED), Acute Bronchitis (ED) Prescriptions: predniSONE 50 mg PO DAILY #5 tab Albuterol Sulfate [Proair Hfa] 1 - 2 puff INHALATION Q4H PRN #1 inhaler PRN Reason: Shortness Of Breath Azithromycin [Zithromax Z-pack (6 tabs)] 0 mg PO DIRECTED #1 pack Is patient prescribed a controlled substance at d/c from ED?: No Referrals: Jemal Olivares MD [Primary Care Provider] - 1-2 days
[2020-08-14] MEDS ORDERED: IPRATROPIUM-ALBUTEROL 3 ML NEB INHALATION STA (03:44)
[2020-08-14] MEDS ORDERED: ACETAMINOPHEN TAB 325 MG TAB PO STA (03:45)
--- NOTE | 2020-08-14 04:04 | XR ---
EXAMINATION TYPE: XR chest 2V DATE OF EXAM: 08/14/2020 COMPARISON: 06/26/2020 HISTORY: Chest pain TECHNIQUE: FINDINGS: Heart and mediastinum are normal. Lungs are clear. Diaphragm is normal. Bony thorax appears normal. IMPRESSION: Normal chest. No change.
[2020-08-14] MEDS ORDERED: dexAMETHasone 2 MG TAB PO STA (04:17)
[2020-08-14] MEDS ORDERED: AZITHROMYCIN 500 MG TAB PO STA (04:17)
[2020-08-14 04:29] VITALS: BP 129/73; PULSE 97; RESP 17
== END 2020-08-14 04:32 | disposition home or self-care (01) ==
LOC: EC 02:51
DX: J45.901 Unspecified asthma with (acute) exacerbation (principal); F41.9 Anxiety disorder, unspecified; Z79.52 Long term (current) use of systemic steroids; Z79.899 Other long term (current) drug therapy
CPT/HCPCS: 71046; 94640; 99284